=== PATIENT | female | born 1985 | race Hispanic/Latino ===

== ENCOUNTER → 2016-12-25 | Outpatient (REF) | payer OTHER | LOC: M LAB REF 20:19 | PROVIDERS: ATTEND Physician Assistant | DX: J11.1 Influenza due to unidentified influenza virus with other respiratory manifestations (principal) ==

== ENCOUNTER → 2017-01-12 | Outpatient (REF) | payer OTHER | LOC: M LAB REF 19:40 | PROVIDERS: ATTEND Physician Assistant | DX: Z11.9 Encounter for screening for infectious and parasitic diseases, unspecified (principal) ==